=== PATIENT | male | born 1950 | race Caucasian/White ===

== ENCOUNTER 2016-04-21 12:37 | Emergency (ER) | payer OTHER, MEDICARE ==
[~2016-04-21] VITALS: Ht 165.1 cm; Wt 69.4 kg
[~2016-04-21 12:37] MED LIST: CYCLOBENZAPRINE10 M1 PO; DILTIAZEM 24HR120 MG PO; DOXAZOSIN MESYLA2 M1 PO; LISINOPRIL30 M1 PO; METHADONE H5 MG/5 M2 PO; OMEPRAZOLE20 M2 PO; PERCOCET 5-3251 EACH PO
--- NOTE | 2016-04-21 14:18 | ED UPPER/LOWER EXTREMITY COMPL ---
History of Present Illness General Chief Complaint: Hip Injury Stated Complaint: R HIP PAIN Source: patient Exam Limitations: no limitations Vital Signs & Intake/Output Vital Signs & Intake/Output Vital Signs Date Time Temp Pulse Resp B/P Pulse O2 O2 Flow FiO2 Ox Delivery Rate 04/21 1426 98.0 90 20 150/80 100 Room Air 04/21 1255 97.9 96 10 152/86 100 Room Air Allergies Coded Allergies: Penicillins (UNKNOWN 08/26/15) Reconcile Medications Cyclobenzaprine HCl 10 MG TABLET 1 TAB PO TID MUSCLE SPASMS (Reported) Diltiazem HCl (Diltiazem 24HR ER) 120 MG CAP.ER.24H 1 CAP PO DAILY HEART ( Reported) Doxazosin Mesylate 2 MG TABLET 1 TAB PO DAILY HEART (Reported) Hydromorphone HCl (Dilaudid) 2 MG TABLET 1 TAB PO BIDP PRN PAIN Lisinopril 30 MG TABLET 1 TAB PO DAILY HEART (Reported) Methadone HCl 5 MG/5 ML SOLUTION 45 MG PO DAILY ADDICITON (Reported) Omeprazole 20 MG CAPSULE.DR 1 CAP PO DAILY GI (Reported) Oxycodone HCl/Acetaminophen (Percocet 5-325 MG Tablet) 1 EACH TABLET 1 TAB PO Q8 PRN PAIN Triage Note: PT TO ED FOR HIP PAIN AND PAIN MANAGEMENT. HAD IMAGING DONE HERE RECENTLY "ITS ARTHRITIS BUT I NEED PAIN STUFF" Triage Nurses Notes Reviewed? yes Onset: Abrupt Duration: waxing and waning, worse persistent since (today) Timing: multiple episodes today Severity: moderate Pain/Injury Location: Right: Hip. Modifying Factors: Improves With: movement. Associated Symptoms: stiffness HPI: 66 year old male presents with right hip pain which is not being resolved by the pain medication he was given by his doctor. He has a known history of arthritis and states that his doctor has referred him to pain management but he can't wait until Saturday. He is supposed to follow up with [facility] in [place]. He denies any recent trauma or injury. Past History Travel History Traveled to [place] past 21 day No Medical History Any Pertinent Medical History? 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 No Review of Systems Review of Systems Constitutional: Denies: chills, fever. EENTM: Reports: no symptoms. Respiratory: Denies: cough, short of breath, sputum production. Cardiovascular: Denies: chest pain, palpitations. Gastrointestinal/Abdominal: Denies: abdominal pain. Genitourinary: Reports: no symptoms. Musculoskeletal: Reports: joint pain, muscle stiffness. Denies: muscle pain, neck pain. Skin: Reports: no symptoms. Neurological/Psychological: Reports: anxiety. Hematologic/Endocrine: Denies: bruising, bleeding. Immunological: Denies: splenectomy. All Other Systems: Reviewed and Negative Physical Exam Physical Exam General Appearance: alert, awake, mild distress, thin Head: atraumatic Eyes: Bilateral: PERRL, EOMI. Ears, Nose, Throat: normal pharynx, normal ENT inspection, hearing grossly normal Neck: normal inspection, supple Cardiovascular/Respiratory: regular rate/rhythm Peripheral Pulses: 2+ radial (R), 2+ radial (L) Gastrointestinal: SOFT NONTENDER Back: normal inspection Leg Left: normal range of motion, mass Leg Right: normal range of motion, normal inspection Hip Left: normal range of motion, normal inspection Hip Right: normal range of motion, normal inspection, pain (WITH RANGE OF MOTION ) Knee Left: normal range of motion, normal inspection Knee Right: normal range of motion, normal inspection Foot Left: normal inspection, normal range of motion Foot Right: normal inspection, normal range of motion Skin: intact, normal color, warm/dry Lymphatic: no anterior cervical alida Progress Differential Diagnosis: contusion, fracture, gout, septic arthritis, sprain, tendon injury, arthritis Plan of Care: PATIENT DROVE TO THE ER. RX SENT TO PHARMACY. NO ACUTE IMAGING INDICATED. Departure Departure Time of Disposition: 1425 Disposition: HOME OR SELF CARE Condition: Stable Clinical Impression Primary Impression: Hip arthritis Referrals: SANGITA AVILES MD (PCP/Family) Additional Instructions: TAKE THE PAIN MEDICATION DIRECTED AND FOLLOW UP WITH [facility] ON SATURDAY. RETURN NEEDED. Departure Forms: Customer Survey General Discharge Information Prescriptions: Current Visit Scripts Hydromorphone HCl (Dilaudid) 1 TAB PO BIDP PRN PAIN #12 TAB
[2016-04-21 14:26] VITALS: BP 150/80
[2016-04-21] MEDS ORDERED: DILAUDID2 M1 PO (14:27)
== END 2016-04-21 14:31 ==
LOC: ERH 12:37
DX: M16.11 Unilateral primary osteoarthritis, right hip (principal)

== ENCOUNTER 2016-06-16 14:21 | Emergency (ER) | payer OTHER, MEDICARE ==
[~2016-06-16] VITALS: Ht 165.1 cm; Wt 69.4 kg
[~2016-06-16 14:21] MED LIST changes: +DILAUDID2 M1 PO
[2016-06-16] MEDS ORDERED: ZOLPIDEM TARTRA10 M1 PO (17:46)
[2016-06-16] MEDS ORDERED: AMLODIPINE BESY10 M1 PO (17:46)
[2016-06-16 17:55] VITALS: BP 139/76
--- NOTE | 2016-06-16 18:13 | RADIOLOGY REPORT ---
EXAMINATION: CR SHOULDER, RIGHT CR RIGHT KNEE CR RIGHT HIP WITH PELVIS CLINICAL INFORMATION: Pain status post fall. Unable to ambulate. Evaluate for hip or knee fracture. Evaluate for shoulder fracture or dislocation. COMPARISON: Right shoulder films dated 04/10/2016. Right hip films dated 04/10/2016. TECHNIQUE: 3 views of the right shoulder. 4 views of the right knee. Frontal view of the pelvis and coned-down frontal and frog-leg lateral views of the right hip. FINDINGS: RIGHT SHOULDER: No acute fracture or dislocation. Glenohumeral joint intact, but humeral head is slightly superiorly subluxed, raising the suspicion of underlying rotator cuff tear. As noted previously, some mild spurring and cystic changes are seen at the greater tuberosity of the humeral head. There is minimal bursal surface spurring at the acromioclavicular joint. No soft tissue calcifications are seen in the joint. Included right ribs are intact. RIGHT KNEE: The patient is status post total right knee arthroplasty with no hardware failure or [place] bone fracture seen. No significant knee joint effusion is seen. There is some ossification seen within the distal quadriceps tendon and anterior to the proximal patellar tendon. There is some serpiginous sclerotic densities seen in the medullary cavity of the distal right femoral metadiaphysis, raising the suspicion of a small bone infarct. RIGHT HIP AND PELVIS: Evaluation of the pelvis is limited due to suboptimal exposure and overlapping soft tissues. Diffuse osteopenia is seen. No acute fracture or dislocation is seen. There is an old fracture deformity of the left proximal femoral shaft and multiple radiopaque densities are seen in the soft tissues of the proximal left thigh, unchanged from prior exam, consistent with shrapnel injury. There is also some metallic artifact seen in the soft tissues of the right upper buttock. [place] are seen in the left lower paraspinal region. Arteriovascular calcifications is seen. Densely calcified ovoid mass in the left pelvis, medial to the acetabulum is again noted, unchanged. IMPRESSION: 1. Diffuse osteopenia with no acute fracture of the right shoulder, right knee or right hip/pelvis. 2. Findings of old healed fracture deformity of the left proximal femoral shaft and shrapnel injury to the proximal left thigh and upper right buttock. 3. Findings suspicious for rotator cuff tear of the right shoulder. Clinical correlation requested. 4. Minimal bursal surface spurring at the acromioclavicular joint. 5. Status post total right knee arthroplasty. No hardware failure seen. 6. 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
--- NOTE | 2016-06-16 18:29 | ED MVC/FALL/TRAUMA COMPLAINT ---
History of Present Illness General Chief Complaint: Fall Stated Complaint: RT HIP PAIN/FALL LAST PM Source: patient Exam Limitations: no limitations Allergies Coded Allergies: Penicillins (HIVES 06/16/16) acetaminophen (PER PT CANT TAKE - PANCREATITIS 06/16/16) ibuprofen (CANT TAKE PER PT - PANCREATITIS 06/16/16) Reconcile Medications Amlodipine Besylate (Unknown Strength) TABLET (Unknown Dose) UNKNOWN ( Reported) Diltiazem HCl (Diltiazem 24HR ER) 120 MG CAP.ER.24H 1 CAP PO DAILY HEART ( Reported) Doxazosin Mesylate 2 MG TABLET 1 TAB PO DAILY HEART (Reported) Hydromorphone HCl (Dilaudid) 2 MG TABLET 1 TAB PO BIDP PRN PAIN Omeprazole 20 MG CAPSULE.DR 1 CAP PO DAILY GI (Reported) Zolpidem Tartrate 10 MG TABLET 1 TAB PO QPM SLEEP (Reported) Triage Note: TRIAGE: 66 Y/O MALE DROPPED OFF BY FAMILY S/P FALL LAST NIGHT IN KITCHEN. REPORTS SLIPPED ON PANT LEG LAST NIGHT. HISTORY OF CHRONIC HIP PAIN. NOW C/O 10/10 RIGHT HIP AND RIGHT KNEE PAIN. PREVIOUS RIGHT KNEE REPLACEMENT. Triage Nurses Notes Reviewed? yes HPI: This patient is a 66-year-old male who presented to the emergency department today for evaluation of pain in his right knee and right hip status post fall 2 days ago. The patient reported that he tripped on his palate leg in the kitchen and fell onto his right hip. He reported that he has been having 10 out of 10 pain in the hip and knee which is nonradiating, constant, and worse with ambulation. No palliative factors. The patient also reported chronic pain in his right shoulder for which she believes he has a rotator cuff tear. The patient denied any head strike or loss of consciousness. ([place] BISHOP,AMAN) Vital Signs & Intake/Output Vital Signs & Intake/Output Vital Signs Date Time Temp Pulse Resp B/P B/P Pulse O2 O2 Flow FiO2 Mean Ox Delivery Rate 06/16 1755 98.4 93 18 139/76 99 Room Air 06/16 1442 99.5 96 18 128/70 97 Room Air Room Air ED Intake and Output 05/ 0000 05 1200 Intake Total Output Total Balance Patient 153 lb Weight Weight Reported by Patient Measurement Method Past History Travel History Traveled to [place] past 21 day No Medical History Any Pertinent Medical History? 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 No (AMAN LOVELACE PA-C) Review of Systems Review of Systems Constitutional: Reports: no symptoms. Eyes: Reports: no symptoms. Ears, Nose, Throat, Mouth: Reports: no symptoms. Respiratory: Reports: no symptoms. Cardiovascular: Reports: no symptoms. Gastrointestinal/Abdominal: Reports: no symptoms. Musculoskeletal: Reports: see HPI. Skin: Reports: no symptoms. Neurological/Psychological: Reports: no symptoms. All Other Systems: Reviewed and Negative (AMAN LOVELACE PA-C) Physical Exam Physical Exam General Appearance: well developed/nourished, no apparent distress, alert, awake Comments: Well-developed well-nourished person in no acute distress HEENT: Normal EENT exam, head normocephalic, moist mucous membranes PERRLA bilaterally Neck: Supple. No midline tenderness Back: Normal inspection Respiratory: No respiratory distress. Speaking in full sentences Right lower extremity: No effusions overlying erythema or ecchymosis of the joint space. Range of motion of the knee limited due to pain. Motion of the hip limited due to pain. No shortening or inversion/eversion of the extremity. Tenderness to palpation over the patella. Hip nontender to palpation. Right shoulder: Slight limited range of motion of the shoulder due to pain. No effusions overlying erythema or ecchymosis. No bony or muscular deformities. Neuro: Alert oriented x3, cranial nerves II through XII grossly intact. Skin: No appreciable rash on exposed skin, skin is warm and dry. Psych: Mood and affect is normal Core Measures ACS in differential dx? No Severe Sepsis Present: No Septic Shock Present: No (AMAN LOVELACE PA-C) Progress Differential Diagnosis: aoritic dissection, abd injury, C/T/L spine injury, ext injury, ICH, pelvis injury, pnemothorax, spinal cord injury, CONTUSION Plan of Care: This patient is a 66 her old male who presented for evaluation of pain status post fall. No acute abnormality seen on the x-ray. This patient does have chronic hip and shoulder pain. He is going to follow up with his orthopedist. Diagnostic Imaging: Viewed by Me: Radiology Read. Discussed w/RAD: Radiology Read. Radiology Impression: PATIENT: PEDRO ROSSI SR PRESENT AGE: 66 PATIENT ACCOUNT NO: [id number] : 50 LOCATION: [facility] ORDERING PHYSICIAN: AMAN LOVELACE PA-C SERVICE DATE: 06/16/16 EXAM TYPE: RAD - XRY-HIP 2-3 VIEWS, RIGHT; XRY-KNEE, RIGHT; XRY-SHOULDER COMPLETE- RIGHT EXAMINATION: CR SHOULDER, RIGHT CR RIGHT KNEE CR RIGHT HIP WITH PELVIS CLINICAL INFORMATION: Pain status post fall. Unable to ambulate. Evaluate for hip or knee fracture. Evaluate for shoulder fracture or dislocation. COMPARISON: Right shoulder films dated 04/10/2016. Right hip films dated 04/10/2016. TECHNIQUE: 3 views of the right shoulder. 4 views of the right knee. Frontal view of the pelvis and coned-down frontal and frog-leg lateral views of the right hip. FINDINGS: RIGHT SHOULDER: No acute fracture or dislocation. Glenohumeral joint intact, but humeral head is slightly superiorly subluxed, raising the suspicion of underlying rotator cuff tear. As noted previously, some mild spurring and cystic changes are seen at the greater tuberosity of the humeral head. There is minimal bursal surface spurring at the acromioclavicular joint. No soft tissue calcifications are seen in the joint. Included right ribs are intact. RIGHT KNEE: The patient is status post total right knee arthroplasty with no hardware failure or [place] bone fracture seen. No significant knee joint effusion is seen. There is some ossification seen within the distal quadriceps tendon and anterior to the proximal patellar tendon. There is some serpiginous sclerotic densities seen in the medullary cavity of the distal right femoral metadiaphysis, raising the suspicion of a small bone infarct. RIGHT HIP AND PELVIS: Evaluation of the pelvis is limited due to suboptimal exposure and overlapping soft tissues. Diffuse osteopenia is seen. No acute fracture or dislocation is seen. There is an old fracture deformity of the left proximal femoral shaft and multiple radiopaque densities are seen in the soft tissues of the proximal left thigh, unchanged from prior exam, consistent with shrapnel injury. There is also some metallic artifact seen in the soft tissues of the right upper buttock. [place] are seen in the left lower paraspinal region. Arteriovascular calcifications is seen. Densely calcified ovoid mass in the left pelvis, medial to the acetabulum is again noted, unchanged. IMPRESSION: 1. Diffuse osteopenia with no acute fracture of the right shoulder, right knee or right hip/pelvis. 2. Findings of old healed fracture deformity of the left proximal femoral shaft and shrapnel injury to the proximal left thigh and upper right buttock. 3. Findings suspicious for rotator cuff tear of the right shoulder. Clinical correlation requested. 4. Minimal bursal surface spurring at the acromioclavicular joint. 5. Status post total right knee arthroplasty. No hardware failure seen. 6. 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 DICTATED BY: LEONIDAS FORD MD. DATE/TIME DICTATED:06/16/161734 TRANSPORTATION SUPERVISOR:DUARTE DATE/TIME TRANSCRIBED:06/16/161734 CONFIDENTIAL, DO NOT COPY WITHOUT APPROPRIATE AUTHORIZATION. <Electronically signed in Other Vendor System> SIGNED BY: LEONIDAS FORD MD 06/16/16 6763 (AMAN LOVELACE PA-C) Departure Departure Disposition: HOME OR SELF CARE Condition: Stable Clinical Impression Primary Impression: Contusion Qualifiers: Encounter type: initial encounter Contusion area: shoulder Laterality: right Qualified Code: S40.011A - Contusion of right shoulder, initial encounter Referrals: JOSÉ LUIS DUVALL,DUDLEY AVILES MD,SANGITA (PCP/Family) Additional Instructions: Please ice and elevate the affected area. Take previously prescribed medication for pain as directed. Please follow-up with your orthopedist and primary care physician. Return for any worsening symptoms or concerns. 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 I have also reviewed all the pertinent lab results and diagnostic results. I agree with the findings and the plan of care as documented in the PA's/PAPER CUTTING MACHINE OPERATOR's documentation. [] I have reviewed the ED Record and agree with the PA's/PAPER CUTTING MACHINE OPERATOR's documentation. [] Additions or exceptions (if any) to the PAs/PAPER CUTTING MACHINE OPERATOR's note and plan are summarized below: [] (ROMAINE DUVALL,PRISCILLA)
[2016-06-16] MEDS ORDERED: DILAUDID2 M1 PO (19:18)
== END 2016-06-16 19:33 ==
LOC: ERH 14:21
DX: T14.8 Other injury of unspecified body region (principal); M25.561 Pain in right knee; M25.511 Pain in right shoulder; W01.0XXA Fall on same level from slipping, tripping and stumbling without subsequent striking against object, initial encounter; Y93.9 Activity, unspecified; Y92.000 Kitchen of unspecified non-institutional (private) residence as the place of occurrence of the external cause
CPT/HCPCS: 73030-RT; 73502-RT; 73560-RT

== ENCOUNTER 2016-06-25 09:23 | Emergency (ER) | payer OTHER, MEDICARE ==
[~2016-06-25] VITALS: Ht 165.1 cm; Wt 69.4 kg
[~2016-06-25 09:23] MED LIST changes: +AMLODIPINE BESY10 M1 PO; +ZOLPIDEM TARTRA10 M1 PO
[2016-06-25 09:30] VITALS: BP 160/86
--- NOTE | 2016-06-25 09:40 | ED GENERAL ADULT ---
History of Present Illness General Chief Complaint: General Adult Stated Complaint: "ARTHRITIS IS KILLING ME" Source: patient Exam Limitations: no limitations Vital Signs & Intake/Output Vital Signs & Intake/Output Vital Signs Date Time Temp Pulse Resp B/P B/P Pulse O2 O2 Flow FiO2 Mean Ox Delivery Rate 06/25 0930 98.2 108 14 160/86 96 Room Air Allergies Coded Allergies: Penicillins (HIVES 06/16/16) acetaminophen (PER PT CANT TAKE - PANCREATITIS 06/16/16) ibuprofen (CANT TAKE PER PT - PANCREATITIS 06/16/16) Reconcile Medications Amlodipine Besylate 10 MG TABLET 1 TAB PO DAILY HEART (Reported) Diltiazem HCl (Diltiazem 24HR ER) 120 MG CAP.ER.24H 1 CAP PO DAILY HEART ( Reported) Doxazosin Mesylate 2 MG TABLET 1 TAB PO DAILY HEART (Reported) Hydromorphone HCl (Dilaudid) 2 MG TABLET 1 TAB PO Q12 PRN PAIN Hydromorphone HCl (Dilaudid) 2 MG TABLET 1 TAB PO BIDP PRN PAIN Omeprazole 20 MG CAPSULE.DR 1 CAP PO DAILY GI (Reported) Zolpidem Tartrate 10 MG TABLET 1 TAB PO QPM SLEEP (Reported) Triage Note: 66 Y/O MALE C/O CHRONIC HIP PAIN AND "MY ARTHRITIS IS KILLING ME". STATES HE HAS BEEN TAKING PO DILAUDID WITH SOME RELIEF BUT RAN OUT AND IS WAITING TO GET INTO PAIN MANAGEMENT. Triage Nurses Notes Reviewed? yes Onset: Abrupt Duration: week(s): Timing: recent history HPI: 06/25/16 10 AM 66-year-old male presents to the emergency department for right hip pain. The patient states that he fell approximately one month ago when he tripped secondary to his underlying gait disturbance. He's had ongoing right hip pain. He said x-rays were done which were negative. Now he complains of ongoing pain and is requesting a prescription refill. He says he cannot tolerate ibuprofen or Percocet due to his pancreatitis. The onset of the symptoms were abrupt, the duration has been 7 days, the severity is significant; as his symptoms required him to come to the emergency department for care. On physical examination he does have pain and tenderness to the right groin and decreased range of motion. Past History Travel History Traveled to [place] past 21 day No Medical History Any Pertinent Medical History? 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 No Review of Systems Review of Systems Constitutional: Reports: no symptoms. EENTM: Reports: no symptoms. Respiratory: Reports: no symptoms. Cardiovascular: Reports: no symptoms. GI: Reports: no symptoms. Genitourinary: Reports: no symptoms. Musculoskeletal: Reports: see HPI. Skin: Denies: rash. Neurological/Psychological: Reports: no symptoms. Hematologic/Endocrine: Reports: no symptoms. Immunologic/Allergic: Reports: no symptoms. Physical Exam Physical Exam General Appearance: alert, awake, anxious, mild distress Head: atraumatic, normal appearance Eyes: Bilateral: normal appearance, PERRL, EOMI. Ears, Nose, Throat: normal pharynx, normal ENT inspection Neck: normal inspection, supple, full range of motion Respiratory: normal breath sounds, chest non-tender, no respiratory distress Cardiovascular: regular rate/rhythm Peripheral Pulses: 4+ radial (R), 4+ radial (L) Back: decreased range of motion Extremities: tenderness Neurologic/Psych: no motor/sensory deficits, awake, alert, oriented x 3 Skin: intact, normal color, warm/dry Core Measures ACS in differential dx? No CVA/TIA Diagnosis: No Severe Sepsis Present: No Septic Shock Present: No Progress Differential Diagnoses I considered the following diagnoses in my evaluation of the patient: [Hip fracture, arthritis, bursitis] Plan of Care: FOLLOW UP WITH HIS DOCTOR THIS WEEK Initial ED EKG: none Departure Departure Disposition: STILL A PATIENT Condition: Stable Clinical Impression Primary Impression: Arthritis Referrals: SANGITA AVILES MD (PCP/Family) Departure Forms: Customer Survey General Discharge Information Prescriptions: Current Visit Scripts Hydromorphone HCl (Dilaudid) 1 TAB PO Q12 PRN PAIN #10 TAB Comments RECENT HIP x-ray IMPRESSION: Degenerative change both hips with evidence of old trauma metallic shrapnel and deformity of the left femur. DICTATED BY: KVNG PATTERSON MD DATE/TIME DICTATED:04/10/161540 FLOORING GRADER:DUARTE DATE/TIME TRANSCRIBED:04/10/161540 CONFIDENTIAL, DO NOT COPY WITHOUT APPROPRIATE AUTHORIZATION. <Electronically signed in Other Vendor System> SIGNED BY: KVNG PATTERSON MD 04/10/16 3139 Critical Care Note Critical Care Note Critical Care Time: non-applicable
[2016-06-25] MEDS ORDERED: DILAUDID2 M1 PO (10:10)
== END 2016-06-25 10:36 ==
LOC: ERH 09:23
DX: M16.11 Unilateral primary osteoarthritis, right hip (principal)

== ENCOUNTER 2016-07-10 11:14 | Inpatient (IN) | payer OTHER, MEDICARE ==
[~2016-07-10] VITALS: Ht 165.1 cm; Wt 69.4 kg
--- NOTE | 2016-07-10 12:15 | ED UPPER/LOWER EXTREMITY COMPL ---
History of Present Illness General Chief Complaint: Hip Injury Stated Complaint: RT HIP PAIN Source: patient Exam Limitations: no limitations Vital Signs & Intake/Output Vital Signs & Intake/Output Vital Signs Date Time Temp Pulse Resp B/P B/P Pulse O2 O2 Flow FiO2 Mean Ox Delivery Rate 07/11 2047 98.0 89 20 130/70 95 Room Air 07/10 1702 153/72 07/10 1538 97.2 65 20 159/82 97 Room Air 07/10 1157 99 Room Air 07/10 1134 97.9 96 20 137/84 98 Room Air Allergies Coded Allergies: Penicillins (HIVES 06/16/16) acetaminophen (PER PT CANT TAKE - PANCREATITIS 06/16/16) ibuprofen (CANT TAKE PER PT - PANCREATITIS 06/16/16) Reconcile Medications Amlodipine Besylate 10 MG TABLET 1 TAB PO DAILY HEART (Reported) Diltiazem HCl (Diltiazem 24HR ER) 120 MG CAP.ER.24H 1 CAP PO DAILY HEART ( Reported) Doxazosin Mesylate 2 MG TABLET 1 TAB PO DAILY HEART (Reported) Omeprazole 20 MG CAPSULE.DR 1 CAP PO DAILY GI (Reported) Oxycodone HCl 10 MG TABLET 1 TAB PO Q8H PRN PAIN (Reported) Zolpidem Tartrate 10 MG TABLET 1 TAB PO QPM SLEEP (Reported) Triage Note: C/O PAIN IN R HIP X 3 DAYS. STATES HE HAS ARTHRITIS AND IS UNABLE TO BEAR WEIGHT. DENIES FALL OR INJURY. Triage Nurses Notes Reviewed? yes Onset: Abrupt Duration: day(s):, constant, getting worse Timing: recent history Severity: moderate, severe Pain/Injury Location: Right: Hip. No Modifying Factors: none HPI: 66-year-old male comes into emergency room with complains of right hip pain. Patient reports that he had fallen about a month ago and was seen here and had x -rays done and was told everything was normal. This past he's had increasing pain to the right hip. He denies any recent falls or trauma. Sharp. Difficulty putting any ambulation on his hip. Denies any other associated symptoms. (GAVIN VERA) Past History Travel History Traveled to [place] past 21 day No Medical History Any Pertinent Medical History? 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 No (GAVIN VERA) Review of Systems Review of Systems Constitutional: Reports: no symptoms. EENTM: Reports: no symptoms. Respiratory: Reports: no symptoms. Cardiovascular: Reports: no symptoms. Gastrointestinal/Abdominal: Reports: no symptoms. Genitourinary: Reports: no symptoms. Musculoskeletal: Reports: see HPI. Skin: Reports: no symptoms. Neurological/Psychological: Reports: no symptoms. Hematologic/Endocrine: Reports: no symptoms. Immunological: Reports: no symptoms. All Other Systems: Reviewed and Negative (GAVIN VERA) Physical Exam Physical Exam General Appearance: well developed/nourished, mild distress Head: atraumatic Eyes: Bilateral: normal appearance. Ears, Nose, Throat: normal ENT inspection, hearing grossly normal Neck: normal inspection Cardiovascular/Respiratory: no respiratory distress Back: normal inspection Hip Right: limited range of motion, pain with radaition Knee Right: normal inspection Neurologic/Tendon: normal sensation, normal motor functions, normal tendon functions, no evidence tendon injury, no pulse deficit Skin: intact, normal color, warm/dry Lymphatic: no anterior cervical alida (GAVIN VERA) Progress Differential Diagnosis: compartment syndrome, contusion, dislocation, DVT, fracture, gout, septic arthritis, sprain, tendon injury Plan of Care: Orders Procedure Date/time Status Regular Diet 07/11 B Active CBC WITHOUT DIFFERENTIAL 07/11 06 Active BASIC ELECTROLYTES PLUS BUN&CR 07/11 06 Active Regular Diet 07/10 D Complete Pathway - chart 07/10 183 Active Admit to inpatient 07/10 183 Active Patient Data 07/10 183 Active Code Status 07/10 183 Active PARTIAL THROMBOPLASTIN TIME 07/10 1247 Complete PROTHROMBIN TIME 07/10 1247 Complete COMPREHENSIVE METABOLIC PANEL 05/30 1247 Complete CBC WITHOUT DIFFERENTIAL 07/10 1246 Complete EKG 07/10 1246 Active TYPE & SCREEN (NOT X-MATCH) 07/10 1246 Complete PT Evaluate & Treat 07/10 UNK Active VTE Mechanical Prophylaxis 07/10 UNK Active Vital Signs 07/10 UNK Active Nursing Misc 07/10 UNK Active Intake & Output 07/10 UNK Active Activity/Ambulation 07/10 UNK Active Current Medications Sig/Esperanza Start time Last Medication Dose Stop Time Status Admin Cefazolin Sodium 2 GM IQ8 07/11 0000 AC (Kefzol) 07/11 0829 N/A 1 UNIT (No Carrier) Dextrose/Sodium 1,000 ML Q13H 07/10 1944 AC 07/10 Chloride 2054 (D5W-1/2 Normal Saline 1000ML) Hydromorphone HCl 1 MG Q2 HRS NEEDED PRN 07/10 1944 AC 07/10 (Dilaudid) 2052 Hydromorphone HCl 0.6 MG Q2 HRS NEEDED PRN 07/10 1944 AC (Dilaudid) Hydromorphone HCl 4 MG Q4 HRS NEEDED PRN 07/10 1944 AC (Dilaudid) Laboratory Tests 07/10/16 1545: Anion Gap 11, Estimated GFR 47 L, BUN/Creatinine Ratio 12.0, Glucose 101 H, Calcium 9.4, Total Bilirubin 0.7, AST 22, ALT 30, Alkaline Phosphatase 159 H, Total Protein 7.5, Albumin 4.3, Globulin 3.2, Albumin/Globulin Ratio 1.3, PT 14.2 H, INR 1.36 H, APTT 30, CBC w Diff NO MAN DIFF REQ, RBC 4.05 L, MCV 89.6 , MCH 30.4, RDW 13.2, MPV 6.6 L, Gran % 80.9 H, Lymphocytes % 15.0 L, Monocytes % 3.7, Eosinophils % 0.3, Basophils % 0.1, Absolute Granulocytes 6.6 H, Absolute Lymphocytes 1.2, Absolute Monocytes 0.3, Absolute Eosinophils 0, Absolute Basophils 0, PUBS MCHC 33.9 Diagnostic Imaging: Viewed by Me: Radiology Read. Discussed w/RAD: Radiology Read. Radiology Impression: SERVICE DATE: 07/10/16-1246 EXAM TYPE: RAD - XRY- PORTABLE CHEST XRAY EXAMINATION: CHEST 1 VIEW CLINICAL INFORMATION: Hip fracture. Preop. COMPARISON: 01/07/2013. TECHNIQUE: An AP view of the chest is provided. FINDINGS: The cardiac silhouette is not enlarged. The mediastinal and hilar contours are unremarkable. There are neither pleural effusions nor pneumothoraces. There is minimal atelectasis at the left lung base. There are no consolidations. A left humeral prosthesis is intact. IMPRESSION: No consolidations. Minimal atelectasis at the left lung base. DICTATED BY: ZACK ATKINS MD DATE/TIME DICTATED:07/10/161326 TOWEL HEMMER:DUARTE , SERVICE DATE: 07/10/16 EXAM TYPE: RAD - XRY-HIP 2-3 VIEWS, RIGHT EXAMINATION: XR HIP, RIGHT CLINICAL INFORMATION: Right hip pain. COMPARISON: 07/2016. TECHNIQUE: AP and lateral views of the right hip. FINDINGS: There is new demonstration of a femoral neck fracture without significant displacement. There is mild medial joint space narrowing. There is soft tissue swelling about the right hip. IMPRESSION: Right femoral neck fracture. DICTATED BY: ZACK ATKINS MD DATE/TIME DICTATED:07/10/161246 Initial ED EKG: normal intervals, normal p-waves, normal QRS complex, normal sinus rhythm, rate (63) (GAVIN VERA) Departure Departure Disposition: STILL A PATIENT Condition: Stable Clinical Impression Primary Impression: Fracture of femoral neck, right Referrals: SANGITA AVILES MD (PCP/Family) Departure Forms: Customer Survey General Discharge Information OR/GI Note Spoke With: NATALYA DUVALL,KAELA Davis ED Treatment Decision: PEDRO ROSSI SR requires urgent operative management or an emergent procedure that cannot be performed in the Emergency Room setting. Transport To: [facility] (GAVIN VERA) PA/TUBULAR PRODUCTS FABRICATOR Co-Sign Statement Statement: ED Attending supervision documentation- [X] I saw and evaluated the patient. I have also reviewed all the pertinent lab results and diagnostic results. I agree with the findings and the plan of care as documented in the PA's/TUBULAR PRODUCTS FABRICATOR's documentation. [X] I have reviewed the ED Record and agree with the PA's/TUBULAR PRODUCTS FABRICATOR's documentation. [] Additions or exceptions (if any) to the PAs/TUBULAR PRODUCTS FABRICATOR's note and plan are summarized below: [] (BREONNA DUVALL,ARTURO) Critical Care Note Critical Care Note Critical Care Time: 30-74 min (40) (ANNALISE CASTANEDA,GAVIN)
--- NOTE | 2016-07-10 13:01 | RADIOLOGY REPORT ---
EXAMINATION: XR HIP, RIGHT CLINICAL INFORMATION: Right hip pain. COMPARISON: 06/16/2016. TECHNIQUE: AP and lateral views of the right hip. FINDINGS: There is new demonstration of a femoral neck fracture without significant displacement. There is mild medial joint space narrowing. There is soft tissue swelling about the right hip. IMPRESSION: Right femoral neck fracture.
--- NOTE | 2016-07-10 13:31 | RADIOLOGY REPORT ---
EXAMINATION: CHEST 1 VIEW CLINICAL INFORMATION: Hip fracture. Preop. COMPARISON: 01/07/2013. TECHNIQUE: An AP view of the chest is provided. FINDINGS: The cardiac silhouette is not enlarged. The mediastinal and hilar contours are unremarkable. There are neither pleural effusions nor pneumothoraces. There is minimal atelectasis at the left lung base. There are no consolidations. A left humeral prosthesis is intact. IMPRESSION: No consolidations. Minimal atelectasis at the left lung base.
--- NOTE | 2016-07-10 14:14 | Cons- Medical ---
[facility] 07/10/16 1414: General Information and HPI Consulting Request Date of Consult: 07/11/16 Requested By: Reason for Consult: Medical clearance for OR Source of Information: patient, old records Exam Limitations: no limitations History of Present Illness: Mr.Voytek meek a 66 yo man with PMHx. of Hypertension, pancreatitis, hepatitis C, history of arthritis, chronic pain syndrome, presented to emergency department with a chief complaint of worsening right hip pain. Patient reports that over the last month he had progressively worsening to right hip pain, over the weekend his pain became very severe, stabbing in nature, 10 over 10 in severity, he was waiting for his son to arrive from a short trip to bring him here to emergency department, his son arrived yesterday and today in the morning he asked him to bring him to emergency department for more evaluation of the right hip pain. Patient was at our emergency department 2 weeks ago with the same pain, at that time pain was attributes to arthritis, x- ray of the right hip was done which was negative, he was given Dilaudid and discharge, he was asked to follow-up with his pain management clinic. Patient reports history of fall about one month ago when he tripped with his pants while dealing with his dog, he fell on his right hip and since that time he has constant pain, he denies any swelling or bruise in the area, he thought that his arthritis is acting up with the weather. He has been taking his medication which include Diluded without relief. He denies any other area of injury or pain, he denies chest pain, shortness of breath, stomach pain, weakness, numbness, loss of consciousness, nausea, vomiting, and no change in urinary or bowel habits. He was unable to ambulate in his right lower extremity, his son was supporting while on the way to emergency department. He is following up with pain management clinic, Dr.Daniela alford Allergies/Medications Allergies: Coded Allergies: Penicillins (HIVES 06/16/16) acetaminophen (PER PT CANT TAKE - PANCREATITIS 06/16/16) ibuprofen (CANT TAKE PER PT - PANCREATITIS 06/16/16) Home Med List: Amlodipine Besylate 10 MG TABLET 1 TAB PO DAILY HEART (Reported) Diltiazem HCl (Diltiazem 24HR ER) 120 MG CAP.ER.24H 1 CAP PO DAILY HEART ( Reported) Doxazosin Mesylate 2 MG TABLET 1 TAB PO DAILY HEART (Reported) Omeprazole 20 MG CAPSULE.DR 1 CAP PO DAILY GI (Reported) Oxycodone HCl 10 MG TABLET 1 TAB PO Q8H PRN PAIN (Reported) Zolpidem Tartrate 10 MG TABLET 1 TAB PO QPM SLEEP (Reported) Current Medications: Current Medications Sig/Esperanza Start time Last Medication Dose Route Stop Time Status Admin Cyclobenzaprine HCl 5 MG BID 07/10 1559 DCr PO Heparin Sodium 0 .STK-MED ONE 07/10 1430 DC (Porcine) IV Hydromorphone HCl 2 MG ONCE ONE 07/10 1400 DC IM 07/10 1401 Hydromorphone HCl 0 .STK-MED ONE 07/10 1351 DC .ROUTE Hydromorphone HCl 1 MG ONCE ONE 07/10 1345 DC 07/10 IM 07/10 1346 1404 Lidocaine 1 PAT DAILY 07/10 1559 DCr EXT Lidocaine 0 .STK-MED ONE 07/10 1430 DC .ROUTE Review of Systems Review of Systems Constitutional: Reports: no symptoms. EENTM: Reports: no symptoms. Cardiovascular: Reports: no symptoms. Respiratory: Reports: no symptoms. GI: Reports: no symptoms. Genitourinary: Reports: no symptoms. Musculoskeletal: Reports: see HPI, back pain, joint pain. Skin: Reports: no symptoms. Neurological/Psychological: Reports: no symptoms. Hematologic/Endocrine: Reports: no symptoms. Immunologic/Allergic: Reports: no symptoms. 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 Surgical History Surgical History: non-contributory Family History Relations & Conditions If Any: FATHER MOTHER Relation not specified for: CHF (congestive heart failure) FHx: stroke Psychosocial History Services at Home: None ETOH Use: denies use Exam & Diagnostic Data Last 24 Hrs of Vital Signs/I&O Vital Signs Date Time Temp Pulse Resp B/P B/P Pulse O2 O2 Flow FiO2 Mean Ox Delivery Rate 07/10 1538 97.2 65 20 159/82 97 Room Air 07/10 1157 99 Room Air 07/10 1134 97.9 96 20 137/84 98 Room Air Intake & Output 07/10 1600 07/10 0800 07/10 0000 Intake Total Output Total Balance Patient 153 lb Weight Weight Reported by Patient Measurement Method Physical Exam General Appearance: no apparent distress, alert, awake Head: atraumatic, normal appearance Eyes: Bilateral: normal appearance, PERRL, EOMI. Neck: normal inspection, supple Respiratory: normal breath sounds, no respiratory distress Cardiovascular: regular rate/rhythm, normal peripheral pulses Gastrointestinal: normal bowel sounds, soft, non-tender, Mid-epigastric incisional scar, with hernia Extremities: normal inspection, normal capillary refill, decrease range of motion on the RT. lower extrimity Neurologic/Psych: awake, alert, oriented x 3, abnormal gait, limping Last 24 Hrs of Labs/Matty: Laboratory Tests 07/10/16 1545: Sodium Pending, Potassium Pending, Chloride Pending, Carbon Dioxide Pending, Anion Gap Pending, BUN Pending, Creatinine Pending, BUN/Creatinine Ratio Pending , Glucose Pending, Calcium Pending, Total Bilirubin Pending, AST Pending, ALT Pending, Alkaline Phosphatase Pending, Total Protein Pending, Albumin Pending, Globulin Pending, Albumin/Globulin Ratio Pending, PT Pending, INR Pending, APTT Pending, CBC w Diff NO MAN DIFF REQ, RBC 4.05 L, MCV 89.6, MCH 30.4, RDW 13.2, MPV 6.6 L, Gran % 80.9 H, Lymphocytes % 15.0 L, Monocytes % 3.7, Eosinophils % 0.3, Basophils % 0.1, Absolute Granulocytes 6.6 H, Absolute Lymphocytes 1.2, Absolute Monocytes 0.3, Absolute Eosinophils 0, Absolute Basophils 0, PUBS MCHC 33.9 Diagnostic Data CXR Results IMPRESSION: No consolidations. Minimal atelectasis at the left lung base. Other Results Hip X-ray: IMPRESSION: Right femoral neck fracture. Assessment/Plan Assessment/Plan Mr.Voytek meek a 66 yo man with PMHx. of Hypertension, pancreatitis, hepatitis C, history of arthritis, chronic pain syndrome, presented to emergency department with a chief complaint of worsening right hip pain admitted for ORIF of right hip. Vitals, examination, labs and imaging as above EKG: SR, Normal intervals, normal p-waves, normal QRS complex, normal sinus rhythm, rate (63) Assessment: #Rt. hip fracture 2/2 mechanical fall 1 month ago #Hx. of HTN #CKD stage 3a, creatinine 1.5 #Hx. of Hepatitis C #Hx. of Pancreatitis Plan: -Patient is medically optimized for surgical intervention today -Continue his home blood pressure medications (Amlodipine and cardizem) -Continue his other home meds -His RCRI score is 0.4 (class I risk) -Pain management -NPO in anticipation of procedure -Monitor respiratory status after procedure giving smoking history -DVT ppx. per surgical team Full code Problem List: 1. Fracture of femoral neck, right 2. Hypertension Consult Acknowledgment - Thank you for your consult request. KATHRYN ODNALD MD 07/10/162130: Assessment/Plan Consult Acknowledgment - Thank you for your consult request. Attending MD Review Statement Attending Statement Attending MD Statement: examined this patient, discuss w/resident/PA/SERVICES MGR, agreed w/resident/PA/SERVICES MGR, reviewed EMR data (avail) Attending Assessment/Plan: Agree with resident assessment and plan. 66M PMH HTN, multiple joint surgeries presenting with mechanical fall 1 week ago and right hip pain with worsening of pain today, found to have right sided hip fracture. Patient is a lifelong smoker but has had no history of COPD diagnosis or exacerbations. He is very active and able to climb flights of stairs without shortness of breath or chest pain. He has no cardiac history. His physical exam is unremarkable. Patient is MEDICALLY OPTIMIZED (and not cleared as documented by resident) for surgery. He is at low cardiac risk. Given his smoking history he is at increased pulmonary risk, though no history of COPD symptoms mitigates this. Will follow while inpatient. See resident recommendations for full details.
[2016-07-10 16:00] LABS: ABSOLUTE BASOPHIL COUNT 0 /CUMM (0.0-0.2); ABSOLUTE EOSINOPHIL COUNT 0 /CUMM (0.0-0.7); ABSOLUTE GRANULOCYTE CT 6.6 /CUMM (1.4-6.5); ABSOLUTE LYMPH COUNT 1.2 /CUMM (1.2-3.4); ABSOLUTE MONOCYTE COUNT 0.3 /CUMM (0.10-0.60); BASOPHIL % 0.1 % (0.0-2.0); EOSINOPHIL % 0.3 % (0-5); GRANULOCYTE % 80.9 % (42.2-75.2); HEMATOCRIT 36.3 % (42-52); MEAN CORPUSCULAR HGB 30.4 PG (27.0-31.0); MEAN CORPUSCULAR HGB CONC 33.9 G/DL (33.0-37.0); MEAN CORPUSCULAR VOLUME 89.6 FL (80.0-94.0); MEAN PLATELET VOLUME 6.6 FL (7.4-10.4); PLATELET COUNT 228 /CUMM (130-400); RBC DISTRIBUTION WIDTH 13.2 % (11.5-14.5); RED BLOOD CELL CT 4.05 /CUMM (4.70-6.10); WHITE BLOOD CELL COUNT 8.2 /CUMM (4.8-10.8)
[2016-07-10] MEDS ORDERED: OXYCODONE HCL10 M2 PO (16:02)
[2016-07-10 16:15] LABS: PT 14.2 SEC (9.4-12.5); PTT 30 SEC (25-37)
--- NOTE | 2016-07-10 16:28 | ULTRASOUND REPORT ---
EXAMINATION: PICC PLACEMENT-RIGHT CLINICAL HISTORY: This patient is a 66 years old Male with a history of poor venous access and new hip fracture, who presents to interventional radiology for placement of a triple lumen PICC for central venous access. PROCEDURES: 1. Real-time ultrasound-guided access into the right brachial vein after documentation of selected vessel patency, and permanent imaging storing in the patient records. 2. Placement of a PICC. PHYSICIANS: Dr. Cheryl Whyte (attending). MEDICATIONS: 4 mL of 1% lidocaine SQ. COMPLICATIONS: None. ESTIMATED BLOOD LOSS: <5 mL. SPECIMENS: None. FLUOROSCOPY TIME: 46 seconds. PROCEDURE NOTE: Informed consent was obtained from the patient prior to the procedure. During this process, the procedure and potential alternatives were explained along with the intended outcome and benefits. The risks of the procedure, including the possibility of an unsuccessful procedure, as well as the risk of not doing the procedure, were discussed. The patient was given the opportunity to ask questions regarding the procedure and appeared competent to make decisions. A signed consent form documenting this discussion was placed in the medical record. SITE MARKING: As part of the preprocedure verification policy, a site marking procedure was initiated. Due to the nature the procedure, the insertion site could not be predetermined thus invoking the policy of exemption to site laterality and marking. Insertion site marking was performed in the procedure room in conjunction with imaging confirmation. A time-out procedure was performed. The patient was placed supine on the fluoroscopy table. Prior to prepping the patient, a limited sonogram of the right arm was performed to choose appropriate access, and this arm was prepped and draped in the usual sterile fashion. All elements of maximal sterile barrier technique followed including use of cap, mask, sterile gown, sterile gloves, a sterile full body drape and hand hygiene. Also followed skin preparation with 2% chlorhexidine for cutaneous antisepsis, and sterile ultrasound preparation with sterile gel and probe cover when applicable. Venous access was achieved into the right brachial vein using ultrasound and fluoroscopic guidance. The 0.018 measuring wire from the PICC was advanced into the cavoatrial junction. The needle was removed and replaced with the peel away sheath. The intravascular length was measured and the catheter was trimmed to the correct length. The inner dilator was removed and the PICC was advanced over the wire into the cavoatrial junction. The peel away sheath and wire were removed. The catheter was tested successfully and secured to the skin with its tip in the cavoatrial junction. A spot image was taken. FINDINGS: 1. Patent right brachial vein. 2. Successful placement of a triple lumen PICC that measures 41 cm in length. IMPRESSION: Successful placement of a PICC. PLAN: 1. The patient was stable after the procedure and was transferred to the interventional recovery area. The patient will be transferred to the floor. 2. The catheter may be used immediately.
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
--- NOTE | 2016-07-10 19:41 | RADIOLOGY REPORT ---
EXAMINATION: XR HIP, RIGHT CLINICAL INFORMATION: Right femoral neck fracture. COMPARISON: 07/10/2016. TECHNIQUE: Several digital images were obtained over a right hip.. FINDINGS/IMPRESSION: There are 3 cannulated screws traversing the right femoral neck for stabilization of neck fracture. No dislocation seen. No additional bony abnormality. The soft tissues are normal.
--- NOTE | 2016-07-10 20:43 | Admission Core Measures ---
Admission Lab Results I reviewed the following labs: Laboratory Tests 07/10 1545 Chemistry Sodium (137 - 145 mmol/L) 139 Potassium (3.5 - 5.1 mmol/L) 4.5 Chloride (98 - 107 mmol/L) 103 Carbon Dioxide (22 - 30 mmol/L) 24 Anion Gap (5 - 16) 11 BUN (9 - 20 mg/dL) 18 Creatinine (0.7 - 1.2 mg/dL) 1.5 H Estimated GFR (>60 ml/min) 47 L BUN/Creatinine Ratio (7 - 25 %) 12.0 Glucose (65 - 99 mg/dL) 101 H Calcium (8.4 - 10.2 mg/dL) 9.4 Total Bilirubin (0.2 - 1.3 mg/dL) 0.7 AST (17 - 59 U/L) 22 ALT (21 - 72 U/L) 30 Alkaline Phosphatase (< 127 U/L) 159 H Total Protein (6.3 - 8.2 g/dL) 7.5 Albumin (3.5 - 5.0 g/dL) 4.3 Globulin (1.9 - 4.2 gm/dL) 3.2 Albumin/Globulin Ratio (1.1 - 2.2 %) 1.3 Coagulation PT (9.4 - 12.5 SEC) 14.2 H INR (0.90 - 1.17) 1.36 H APTT (25 - 37 SEC) 30 Hematology CBC w Diff NO MAN DIFF REQ WBC (4.8 - 10.8 /CUMM) 8.2 RBC (4.70 - 6.10 /CUMM) 4.05 L Hgb (14.0 - 18.0 G/DL) 12.3 L Hct (42 - 52 %) 36.3 L MCV (80.0 - 94.0 FL) 89.6 MCH (27.0 - 31.0 PG) 30.4 RDW (11.5 - 14.5 %) 13.2 Plt Count (130 - 400 /CUMM) 228 MPV (7.4 - 10.4 FL) 6.6 L Gran % (42.2 - 75.2 %) 80.9 H Lymphocytes % (20.5 - 51.1 %) 15.0 L Monocytes % (1.7 - 9.3 %) 3.7 Eosinophils % (0 - 5 %) 0.3 Basophils % (0.0 - 2.0 %) 0.1 Absolute Granulocytes (1.4 - 6.5 /CUMM) 6.6 H Absolute Lymphocytes (1.2 - 3.4 /CUMM) 1.2 Absolute Monocytes (0.10 - 0.60 /CUMM) 0.3 Absolute Eosinophils (0.0 - 0.7 /CUMM) 0 Absolute Basophils (0.0 - 0.2 /CUMM) 0 PUBS MCHC (33.0 - 37.0 G/DL) 33.9 Admission Meds I reviewed the following Meds: Current Medications Sig/Esperanza Start time Last Medication Dose Stop Time Status Admin Cefazolin Sodium 2 GM IQ8 07/11 0000 AC (Kefzol) 07/11 0829 N/A 1 UNIT (No Carrier) Dextrose/Sodium 1,000 ML Q13H 07/10 1944 AC Chloride (D5W-1/2 Normal Saline 1000ML) Hydromorphone HCl 1 MG Q2 HRS NEEDED PRN 07/10 1944 AC (Dilaudid) Hydromorphone HCl 0.6 MG Q2 HRS NEEDED PRN 07/10 1944 AC (Dilaudid) Hydromorphone HCl 4 MG Q4 HRS NEEDED PRN 07/10 1944 AC (Dilaudid) Acute Coronary Syndrome Inclusion Criteria ACS Diagnosis No Inpatient Core Measures LDL Reminder: If No, please order W/I first 24hr of stay Congestive Heart Failure Inclusion Criteria CHF Diagnosis No Cerebrovascular accident Inclusion Criteria CVA/TIA Diagnosis No Inpatient Core Measures Bedside Swallow Eval Reminder: If BSE failed, place ST order Antithrombotic Reminder: Order Antithrombotic Medication by end of day 2 Antithrombotic Reminder: Document Reason Antithrombotic Not ordered by end of day 2 AFIB/Flutter Reminder: If Present, add to problem list AFIB/Flutter Reminder: Order Anticoag Medication for pts with AFIB/Flutter Atherosclerosis Reminder: If Present, add to problem list LDL Reminder: If No, please order W/I first 24hr of stay PT Order Reminder: If No, please order Venous thromboembolism Inpatient Core Measures VTE Risk Factors: Age > 40, [facility] prophylaxis d/t No contraindications No VTE Pharm Prophylaxis d/t VTE low risk Inclusion Criteria - Per Current guidelines, there needs to be overlap - treatment for the first 5 days of Warfarin therapy. - Parenteral Anticoagulation (IV or SC) needs to be - given along with Warfarin therapy. VTE Diagnosis No VTE Type NONE VTE Confirmed by (Test) NONE Problem List As ranked by this Provider includes Assessment & Plan 1. Fracture of femoral neck, right HOME MEDS Home Med List Amlodipine Besylate 10 MG TABLET 1 TAB PO DAILY HEART (Reported) Diltiazem HCl (Diltiazem 24HR ER) 120 MG CAP.ER.24H 1 CAP PO DAILY HEART ( Reported) Doxazosin Mesylate 2 MG TABLET 1 TAB PO DAILY HEART (Reported) Omeprazole 20 MG CAPSULE.DR 1 CAP PO DAILY GI (Reported) Oxycodone HCl 10 MG TABLET 1 TAB PO Q8H PRN PAIN (Reported) Zolpidem Tartrate 10 MG TABLET 1 TAB PO QPM SLEEP (Reported)
[2016-07-10 20:48] VITALS: BP 130/70
--- NOTE | 2016-07-10 20:50 | PN- Orthopedic ---
Subjective Subjective: Postop check: Patient with pain, controlled with IV pain medication, he is awake and alert, no other complaints Objective Vital Signs and I&Os Vital Signs Date Time Temp Pulse Resp B/P B/P Pulse O2 O2 Flow FiO2 Mean Ox Delivery Rate 07/10 1702 153/72 07/10 1538 97.2 65 20 159/82 97 Room Air 07/10 1157 99 Room Air 07/10 1134 97.9 96 20 137/84 98 Room Air Intake & Output 07/10 0807/10 0000 07/09 0000 Intake Total Output Total Balance Patient 153 lb Weight Weight Reported by Patient Measurement Method Physical Exam: Well-developed well-nourished no apparent distress. HEENT: Atraumatic, extraocular motion intact Neck: Supple, no lymphadenopathy Respiratory: No respiratory distress Extremities: No edema RIGHT lower extremity hip dressing in place, Dressing clean dry and intact Mild thigh edema No signs of infection. No shortening or rotation Hip range of motion is limited and without unexpected pain Neurovascularly intact distally Bilateral calves are supple, nontender. Neuro: Alert and oriented x3 Psych: Mood affect normal, normal memory normal judgment. Skin: Warm and dry, no rash on exposed skin Results Last 48 Hours of Labs: Laboratory Tests 07/10 1545 Chemistry Sodium (137 - 145 mmol/L) 139 Potassium (3.5 - 5.1 mmol/L) 4.5 Chloride (98 - 107 mmol/L) 103 Carbon Dioxide (22 - 30 mmol/L) 24 Anion Gap (5 - 16) 11 BUN (9 - 20 mg/dL) 18 Creatinine (0.7 - 1.2 mg/dL) 1.5 H Estimated GFR (>60 ml/min) 47 L BUN/Creatinine Ratio (7 - 25 %) 12.0 Glucose (65 - 99 mg/dL) 101 H Calcium (8.4 - 10.2 mg/dL) 9.4 Total Bilirubin (0.2 - 1.3 mg/dL) 0.7 AST (17 - 59 U/L) 22 ALT (21 - 72 U/L) 30 Alkaline Phosphatase (< 127 U/L) 159 H Total Protein (6.3 - 8.2 g/dL) 7.5 Albumin (3.5 - 5.0 g/dL) 4.3 Globulin (1.9 - 4.2 gm/dL) 3.2 Albumin/Globulin Ratio (1.1 - 2.2 %) 1.3 Coagulation PT (9.4 - 12.5 SEC) 14.2 H INR (0.90 - 1.17) 1.36 H APTT (25 - 37 SEC) 30 Hematology CBC w Diff NO MAN DIFF REQ WBC (4.8 - 10.8 /CUMM) 8.2 RBC (4.70 - 6.10 /CUMM) 4.05 L Hgb (14.0 - 18.0 G/DL) 12.3 L Hct (42 - 52 %) 36.3 L MCV (80.0 - 94.0 FL) 89.6 MCH (27.0 - 31.0 PG) 30.4 RDW (11.5 - 14.5 %) 13.2 Plt Count (130 - 400 /CUMM) 228 MPV (7.4 - 10.4 FL) 6.6 L Gran % (42.2 - 75.2 %) 80.9 H Lymphocytes % (20.5 - 51.1 %) 15.0 L Monocytes % (1.7 - 9.3 %) 3.7 Eosinophils % (0 - 5 %) 0.3 Basophils % (0.0 - 2.0 %) 0.1 Absolute Granulocytes (1.4 - 6.5 /CUMM) 6.6 H Absolute Lymphocytes (1.2 - 3.4 /CUMM) 1.2 Absolute Monocytes (0.10 - 0.60 /CUMM) 0.3 Absolute Eosinophils (0.0 - 0.7 /CUMM) 0 Absolute Basophils (0.0 - 0.2 /CUMM) 0 PUBS MCHC (33.0 - 37.0 G/DL) 33.9 Assessment/Plan Assessment/Plan Postoperative day 0 status post right hip femoral neck fracture percutaneous pinning Orthopedically stable Pain medication as needed, Dilaudid IV, switch to by mouth tomorrow Regular diet alps for DVT prophylaxis Out of bed with physical therapy touchdown weightbearing right lower extremity Discontinue IV fluids when tolerating adequate by mouth Perioperative antibiotics, Ancef 2 g every 8 hours Dressing change postop day 2 Core Measures/Miscellaneous Venous Thromboembolism VTE Risk Factors: Age > 40, Surgery VTE Contraindications: No Contraindications VTE Diagnosis: No VTE Type: NONE VTE Confirmed by (Test): NONE Beta Faisal Is Beta Faisal a Home Med? No Antibiotics Is Patient on Antibiotics? Yes If Yes: prophylaxis
[2016-07-10 23:00] VITALS: BP 138/74
[2016-07-11 01:06] VITALS: BP 122/72
[2016-07-11 02:59] VITALS: BP 124/64
[2016-07-11 06:00] VITALS: BP 132/70
--- NOTE | 2016-07-11 07:07 | PN- Medicine Consult ---
Assessment/Plan Assessment/Plan Assessment: Mr. Joesph meek a 66 yo man with PMHx. of Hypertension, pancreatitis, hepatitis C, history of arthritis, chronic pain syndrome, presented to emergency department with a chief complaint of worsening right hip pain, found to have right hip femoral neck fracture, admitted for ORIF of right hip. Today he is day 1 s/p right femoral neck ORIF with percutaneous pinning Assessment: #Rt. hip fracture 2/2 mechanical fall 1 month ago, day 1 s/p ORIF, percutaneous pinning #Hx. of HTN #CKD stage 3a #Hx. of Hepatitis C #Hx. of Pancreatitis Plan: -Pain management, suggest to adjust his pain medications to: Diluded 2mg IV Q2h and 0.6mg IV Q4h PRN . Aim is to decrease the frequency of his pain medications to better control pain. -Continue his home blood pressure medications (Amlodipine and Cardizem) -Continue his other home meds -Advanced diet as tolerated -Monitor bowel movement -Moniotr BP Problem List: 1. Status post open reduction with internal fixation of fracture Subjective Subjective: Patient seen and examined, he is in sever pain at the procedure site, 11/20, localized to the area, he denies any numbness. He dosen't have bowel movement yet, good UOP over night. Denies any chest pain, SOB, N/V. Review of Systems Constitutional: Reports: no symptoms. EENTM: Reports: no symptoms. Cardiovascular: Reports: no symptoms. Respiratory: Reports: no symptoms. Gastrointestinal: Reports: no symptoms. Genitourinary: Reports: no symptoms. Musculoskeletal: Reports: joint pain. Skin: Reports: no symptoms. Neurological/Psychological: Reports: no symptoms. Hematologic/Endocrine: Reports: no symptoms. Objective Last 24 Hrs of Vital Signs/I&O Vital Signs Date Time Temp Pulse Resp B/P B/P Pulse O2 O2 Flow FiO2 Mean Ox Delivery Rate 07/11 0600 99.1 70 16 132/70 95 Room Air 07/11 0259 98.9 78 16 124/64 95 Room Air 07/11 0106 98.9 72 16 122/72 94 Room Air 07/10 2300 98.5 64 16 138/74 95 Room Air 07/10 2048 98.0 89 20 130/70 95 Room Air 07/10 1702 153/72 07/10 1538 97.2 65 20 159/82 97 Room Air 07/10 1157 99 Room Air 07/10 1134 97.9 96 20 137/84 98 Room Air Intake & Output 07/11 0800 07/11 0000 07/10 1600 Intake Total 1000 1430 Output Total 500 700 Balance 500 730 Intake, IV 600 950 Intake, Oral 400 480 Output, Urine 500 700 Patient 153 lb 153 lb Weight Weight Reported by Patient Measurement Method Physical Exam General Appearance: alert, awake, severe distress Head: atraumatic, normal appearance Neck: normal inspection, supple, full range of motion Cardiovascular: regular rate/rhythm, normal peripheral pulses Respiratory: normal breath sounds, no respiratory distress Abdomen: soft, non-tender, distended, epigastric hernia Extremities: no edema Current Medications: Current Medications Sig/Esperanza Start time Last Medication Dose Route Stop Time Status Admin Amlodipine Besylate 10 MG DAILY 07/11 1000 AC PO Cefazolin Sodium 2 GM IQ8 07/11 0000 AC 07/10 N/A 1 UNIT IV 07/11 0829 2318 Cyclobenzaprine HCl 5 MG BID 07/10 1559 DC PO Dextrose/Sodium 1,000 ML Q13H 07/10 1945 DC 07/10 Chloride IV 2055 Diltiazem HCl 120 MG DAILY 07/11 1000 AC PO Doxazosin Mesylate 2 MG DAILY 07/11 1000 AC PO Heparin Sodium 0 .STK-MED ONE 07/10 1430 DC (Porcine) IV Hydromorphone HCl 2 MG Q4P PRN 07/11 0745 AC PO Hydromorphone HCl 1 MG Q2 HRS NEEDED PRN 07/10 1945 DC 07/10 IV 2318 Hydromorphone HCl 0.6 MG Q2 HRS NEEDED PRN 07/10 1945 AC IV Hydromorphone HCl 4 MG Q4 HRS NEEDED PRN 07/10 1945 AC 07/11 PO 0525 Hydromorphone HCl 2 MG ONCE ONE 07/10 1400 DC IM 07/10 1401 Hydromorphone HCl 0 .STK-MED ONE 07/10 1351 DC .ROUTE Hydromorphone HCl 1 MG ONCE ONE 07/10 1345 DC 07/10 IM 07/10 1346 1404 Lidocaine 1 PAT DAILY 07/10 1559 DC EXT Lidocaine 0 .STK-MED ONE 07/10 1430 DC .ROUTE Omeprazole 20 MG DAILY 07/11 1000 AC PO Zolpidem Tartrate 10 MG QPM 07/11 2200 AC PO Results Last 24 Hrs Lab/Matty Results: Laboratory Tests 07/11/16 0530: Sodium Pending, Potassium Pending, Chloride Pending, Carbon Dioxide Pending, Anion Gap Pending, BUN Pending, Creatinine Pending, BUN/Creatinine Ratio Pending , CBC w Diff Pending, WBC Pending, RBC Pending, Hgb Pending, Hct Pending, MCV Pending, MCH Pending, RDW Pending, Plt Count Pending, MPV Pending, PUBS MCHC Pending 07/10/16 1545: Anion Gap 11, Estimated GFR 47 L, BUN/Creatinine Ratio 12.0, Glucose 101 H, Calcium 9.4, Total Bilirubin 0.7, AST 22, ALT 30, Alkaline Phosphatase 159 H, Total Protein 7.5, Albumin 4.3, Globulin 3.2, Albumin/Globulin Ratio 1.3, PT 14.2 H, INR 1.36 H, APTT 30, CBC w Diff NO MAN DIFF REQ, RBC 4.05 L, MCV 89.6 , MCH 30.4, RDW 13.2, MPV 6.6 L, Gran % 80.9 H, Lymphocytes % 15.0 L, Monocytes % 3.7, Eosinophils % 0.3, Basophils % 0.1, Absolute Granulocytes 6.6 H, Absolute Lymphocytes 1.2, Absolute Monocytes 0.3, Absolute Eosinophils 0, Absolute Basophils 0, PUBS MCHC 33.9
--- NOTE | 2016-07-11 07:43 | PN- Orthopedic ---
Subjective Subjective: No acute overnight events reported, patient states that he has discomfort because when supine he is "laying on incision" but has gotten relief with dilaudid. Denies chest pain, shortness of breath and difficulty breathing. Denies nausea and vomitting. Has been tolerating po. Has been voiding without difficulty. Objective Vital Signs and I&Os Vital Signs Date Time Temp Pulse Resp B/P B/P Pulse O2 O2 Flow FiO2 Mean Ox Delivery Rate 07/11 0600 99.1 70 16 132/70 95 Room Air 07/11 0259 98.9 78 16 124/64 95 Room Air 07/11 0106 98.9 72 16 122/72 94 Room Air 07/10 2300 98.5 64 16 138/74 95 Room Air 07/10 2048 98.0 89 20 130/70 95 Room Air 07/10 1702 153/72 07/10 1538 97.2 65 20 159/82 97 Room Air 07/10 1157 99 Room Air 07/10 1134 97.9 96 20 137/84 98 Room Air Intake & Output 07/11 0800 07/11 0000 07/10 1600 07/10 0800 07/10 0000 07/09 1600 Intake Total 1000 1430 Output Total 500 700 Balance 500 730 Intake, IV 600 950 Intake, Oral 400 480 Output, Urine 500 700 Patient 153 lb 153 lb Weight Weight Reported by Patient Measurement Method Physical Exam: General: Alert and oriented x3, no acute distress Cardiac: RRR, s1s2 Pulmonary: CTA bilaterally Abdomen: Non-tender, non-distended Extremties: Moves all extremities, distal sensation intact. Skin warm and well perfused. No resting internal or external rotation of right leg, no obvious leg length discrepancy. Thigh compartment soft on right side, dressing dry and intact. DP pulse palpable bilaterally, bilateral calves soft. Assessment/Plan Assessment/Plan This is a 66 year old male, POD 1, s/p ORIF right femoral neck fracture with cannulated screw placement. -D/C 1 mg IV dilaudid, leave 0.6 mg IV for breakthrough, add 2 mg for pain 1-6, change 4 mg to pain 7-10. Will attempt to wean off of IV dilaudid completely today. -Ice to surgical site today -D/C IV fluids, tolerating po -OOB with pt, ttwb -Diet as tolerated -Mechanical dvt ppx -ALPS; if remains immobile, will add sq heparin, but none needed for now per Dr. Villafana -Restart home meds for htn and GERD -Will d/w Dr. Villafana Core Measures/Miscellaneous Venous Thromboembolism VTE Risk Factors: Age > 40, Surgery VTE Contraindications: No Contraindications VTE Diagnosis: No VTE Type: NONE VTE Confirmed by (Test): NONE Beta Faisal Is Beta Faisal a Home Med? No Antibiotics Is Patient on Antibiotics? Yes If Yes: prophylaxis
[2016-07-11 08:04] LABS: ABSOLUTE BASOPHIL COUNT 0 /CUMM (0.0-0.2); ABSOLUTE EOSINOPHIL COUNT 0.1 /CUMM (0.0-0.7); ABSOLUTE GRANULOCYTE CT 5.8 /CUMM (1.4-6.5); ABSOLUTE LYMPH COUNT 1.6 /CUMM (1.2-3.4); ABSOLUTE MONOCYTE COUNT 0.4 /CUMM (0.10-0.60); BASOPHIL % 0.4 % (0.0-2.0); EOSINOPHIL % 1.3 % (0-5); HEMATOCRIT 33.2 % (42-52); MEAN CORPUSCULAR HGB 31.2 PG (27.0-31.0); MEAN CORPUSCULAR HGB CONC 34.3 G/DL (33.0-37.0); MEAN PLATELET VOLUME 7.4 FL (7.4-10.4); PLATELET COUNT 193 /CUMM (130-400); RBC DISTRIBUTION WIDTH 13.4 % (11.5-14.5); RED BLOOD CELL CT 3.65 /CUMM (4.70-6.10); WHITE BLOOD CELL COUNT 7.9 /CUMM (4.8-10.8)
[2016-07-11 12:45] VITALS: BP 130/60
[2016-07-11 14:37] VITALS: BP 128/76
[2016-07-11 22:52] VITALS: BP 122/54
[2016-07-12 06:14] VITALS: BP 130/68
--- NOTE | 2016-07-12 07:57 | PN- Orthopedic ---
Assessment/Plan Assessment/Plan Core Measures/Miscellaneous Venous Thromboembolism VTE Risk Factors: Age > 40, Surgery VTE Contraindications: No Contraindications VTE Diagnosis: No VTE Type: NONE VTE Confirmed by (Test): NONE Beta Faisal Is Beta Faisal a Home Med? No Antibiotics Is Patient on Antibiotics? Yes If Yes: prophylaxis
--- NOTE | 2016-07-12 08:18 | PN- Orthopedic ---
Subjective Subjective: PT. HAS MULTIPLE COMPLAINTS. HIS MAJOR COMPLAINT IS POOR PAIN CONTROL. HE STATES HE IS HAVING LOTS OF PAIN AND THAT HE HAS BEEN ASKING ALL NIGHT FOR PAIN MED BUT WAS NOT GIVEN ANY. COMPLAINS THAT HE WANTS TO USE CRUTHCES INSTEAD OF WALKER. Objective Vital Signs and I&Os Vital Signs Date Time Temp Pulse Resp B/P B/P Pulse O2 O2 Flow FiO2 Mean Ox Delivery Rate 07/12 0514 97.5 83 20 130/68 95 Room Air 07/11 2252 99.0 79 20 122/54 94 Room Air 07/11 1437 98.6 76 20 128/76 95 07/11 1245 100.0 80 18 130/60 97 Room Air 07/11 1115 74 142/70 Intake & Output 07/12 1600 07/12 0800 07/12 0000 07/11 1600 07/11 0800 07/11 0000 Intake Total 480 157 489 3736 1430 Output Total 275 550 750 700 Balance 205 500 275 250 730 Intake, IV 225 600 950 Intake, Oral 480 500 600 400 480 Output, Urine 275 550 750 700 Patient 153 lb Weight ALERT, ORIENTED, TEARFULL, UPSET REG. NOT GETTING PAIN MEDS. HERAT REGULAR LUNGS CLEAR BILAT. ABDOMEN BENIGN R HIP DRESSING IS C/D/I, NORMAL SENSATION OVER ENTIRE LEG,GOOD DISTAL PERFUSION AND MOTOR FUNCTION Assessment/Plan Assessment/Plan S/P R FEM NECK PINNING POD #2 STABLE HEMODYNAMICS PAIN ISSUE. I REVIEWED HIS MEDS; HE WAS NOT MEDICATED BETWEEN 12 MN AND 6 AM THIS MORNING WHICH LIKELY CONTRIBUTED TO HIS SEVERE PAIN THIS MORNING.I REVIEWED MEDS WITH NURSE AND PT. WILL CONTINUE 2 MG OF PO DILAUDID EVERY 4 HRS WITH IV 0.6 MG DILAUDID FOR BREAKTHROUGH PAIN.WILL CONSIDRE ADJUSTING FREQUENCY OF PO DILAUDID IF REQUIRES SIGNIFICANT AMOUNTS OF ADDITIONAL IV DILUADID. WILL ADD BOWEL REGIMEN PT TO WORK TODAY FOR AMBULATION /TDWB WOUND WITHOUT INFECTION MAY NEED REHAB AT DISCHARGE Core Measures/Miscellaneous Venous Thromboembolism VTE Risk Factors: Age > 40, Surgery VTE Contraindications: No Contraindications VTE Diagnosis: No VTE Type: NONE VTE Confirmed by (Test): NONE Beta Faisal Is Beta Faisal a Home Med? No Antibiotics Is Patient on Antibiotics? Yes If Yes: prophylaxis
--- NOTE | 2016-07-12 08:46 | PN- Medicine Consult ---
YVETTE,[facility] 07/12/16 0845: Assessment/Plan Assessment/Plan Assessment: Mr. Joesph meek a 66 yo man with PMHx. of Hypertension, pancreatitis, hepatitis C, history of arthritis, chronic pain syndrome, presented to emergency department with a chief complaint of worsening right hip pain, found to have right hip femoral neck fracture, admitted for ORIF of right hip. Today he is day 1 s/p right femoral neck ORIF with percutaneous pinning Assessment: #Rt. hip fracture 2/2 mechanical fall 1 month ago, day 1 s/p ORIF, percutaneous pinning #Hx. of HTN #CKD stage 3a #Hx. of Hepatitis C #Hx. of Pancreatitis Plan: -Patient is still in pain: suggest to change PO Diluded either 4mg or 2mg from PRN to schedualed and taper as tolerated, keep 0.6 iv diluded Q2h for breakthrough pain. -Continue his home blood pressure medications (Amlodipine and Cardizem) -Continue his other home meds -Advanced diet as tolerated -Monitor bowel movement -Moniotr BP Problem List: 1. Status post open reduction with internal fixation of fracture 2. Hepatitis C 3. Pain Subjective Subjective: Patient seen and examinaed, he complained of sever pain, 10/10 overnight, he has been asking for pain medication, didn't received any. He also complained of right foot pain. He is able to pass gas, but no bowel movement yest, good urine output. Patient denies any other complaint. Review of Systems Constitutional: Reports: no symptoms. EENTM: Reports: no symptoms. Cardiovascular: Reports: no symptoms. Respiratory: Reports: no symptoms. Gastrointestinal: Reports: no symptoms. Genitourinary: Reports: no symptoms. Musculoskeletal: Reports: joint pain. Skin: Reports: no symptoms. Neurological/Psychological: Reports: no symptoms. Comments: Patient has right foot pain at the lateral aspect of the dorsal metatarsal area. Objective Last 24 Hrs of Vital Signs/I&O Vital Signs Date Time Temp Pulse Resp B/P B/P Pulse O2 O2 Flow FiO2 Mean Ox Delivery Rate 07/12 0614 97.5 83 20 130/68 95 Room Air 07/11 2252 99.0 79 20 122/54 94 Room Air 07/11 1437 98.6 76 20 128/76 95 07/11 1245 100.0 80 18 130/60 97 Room Air 07/11 1115 74 142/70 Intake & Output 07/12 1600 07/12 0800 07/12 0000 Intake Total 480 500 Output Total 275 Balance 205 500 Intake, Oral 480 500 Output, Urine 275 Physical Exam General Appearance: alert, awake, severe distress Head: atraumatic, normal appearance Cardiovascular: regular rate/rhythm, normal peripheral pulses Respiratory: normal breath sounds, no respiratory distress Peripheral Pulses: 3+ dorsalis pedis (R), 3+ dorsalis pedis (L) Abdomen: normal bowel sounds, soft, non-tender Extremities: no edema Neurologic/Psychiatric: awake, alert, oriented x 3 Current Medications: Current Medications Sig/Esperanza Start time Last Medication Dose Route Stop Time Status Admin Amlodipine Besylate 10 MG DAILY 07/11 1000 AC 07/12 PO 0815 Carisoprodol 350 MG 4 TIMES/DAY PRN 07/11 1830 CAN PO Carisoprodol 350 MG TID PRN 07/11 1830 AC 07/12 PO 0815 Diltiazem HCl 120 MG DAILY 07/11 1000 AC 07/12 PO 0815 Docusate Sodium 100 MG BID 07/12 1000 AC 07/12 PO 0815 Doxazosin Mesylate 2 MG DAILY 07/11 1000 AC 07/12 PO 0815 Hydromorphone HCl 2 MG Q4P PRN 07/11 0745 AC PO Hydromorphone HCl 0.6 MG Q2 HRS NEEDED PRN 07/10 1945 AC 07/12 IV 0831 Hydromorphone HCl 4 MG Q4 HRS NEEDED PRN 07/10 1945 AC 07/12 PO 0748 Omeprazole 20 MG DAILY 07/11 1000 AC 07/12 PO 0815 Polyethylene Glycol 17 GM DAILY 07/12 1000 AC PO Senna 187 MG AT BEDTIME 07/12 2200 AC PO Zolpidem Tartrate 10 MG QPM 07/11 2200 AC 07/11 PO 2143 Results Last 24 Hrs Lab/Matty Results: NO lab for today KATHRYN DONALD MD 07/12/16 1356: Attending MD Review Statement Attending Sign Off Attending Cosign Statement: I have: examined this patient, reviewed [facility] EMR data, discussd w/resident/PA/ LUNCHROOM ATTENDANT, agreed w/resident/PA/LUNCHROOM ATTENDANT.
[2016-07-12 14:15] VITALS: BP 118/65
--- NOTE | 2016-07-12 16:01 | Operative Report ---
Operative/Inv Procedure Report Surgery Date: 07/10/16
[2016-07-12 21:53] VITALS: BP 120/66
[2016-07-13 07:20] VITALS: BP 118/64
--- NOTE | 2016-07-13 07:52 | PN- Orthopedic ---
See Addendum Subjective Subjective: Patient's pain is better controlled. [facility] No acute events overnight. Objective Vital Signs and I&Os Vital Signs Date Time Temp Pulse Resp B/P B/P Pulse O2 O2 Flow FiO2 Mean Ox Delivery Rate 07/13 0720 99.0 76 22 118/64 95 / 2153 98.8 85 22 120/66 95 07/12 1415 98.4 81 20 118/65 95 Room Air 07/12 1149 Room Air Intake & Output 07/13 0800 07/13 0000 07/12 1600 07/12 0800 07/12 0000 07/11 1600 Intake Total 1000 480 500 825 Output Total 350 650 275 550 Balance -350 350 205 500 275 Intake, IV 100 225 Intake, Oral 900 480 500 600 Number 0 Bowel Movements Output, Urine 350 650 275 550 Physical Exam: Well-developed well-nourished no apparent distress. HEENT: Atraumatic, extraocular motion intact Neck: Supple, no lymphadenopathy Respiratory: No respiratory distress Extremities: No edema RIGHT lower extremity hip dressing in place, Dressing clean dry and intact, dressing changed Incision without erythema Mild thigh edema No signs of infection. No shortening or rotation Hip range of motion is limited and without unexpected pain Neurovascularly intact distally Bilateral calves are supple, nontender. Neuro: Alert and oriented x3 Psych: Mood affect normal, normal memory normal judgment. Skin: Warm and dry, no rash on exposed skin Assessment/Plan Assessment/Plan Postop day #3 status post right hip percutaneous pinning Continue current pain regiment alps for DVT prophylaxis Continue touchdown weightbearing with physical therapy, OOB Disposition to short-term rehabilitation silly today if bed available Follow-up in 10 days as outpatient with orthopedist Core Measures/Miscellaneous Venous Thromboembolism VTE Risk Factors: Age > 40, Surgery VTE Contraindications: No Contraindications VTE Diagnosis: No VTE Type: NONE VTE Confirmed by (Test): NONE Beta Faisal Is Beta Faisal a Home Med? No Antibiotics Is Patient on Antibiotics? Yes If Yes: prophylaxis
--- NOTE | 2016-07-13 07:58 | Patient Discharge Instructions ---
Discharge Instructions General Discharge Information You were seen/treated for: Right hip fracture You had these procedures: Right hip percutaneous pinning Watch for these problems: Redness, swelling, fever, severe pain or deformity of the hip or like Call Surgeon to remove: [place] (10 days) Do not soak the wound: Yes No bath, but you may shower: Yes Special Instructions: Dry sterile dressing right hip Diet Continue normal diet: Yes Activity Full Activity/No Limits: No Activity Self Limited: Yes Activity Limited to: Walking with Assistance Additional ACTIVITY Info: Touchdown weightbearing right lower extremity only Acute Coronary Syndrome Inclusion Criteria At DC or during hospital stay patient has or had the following: ACS DIAGNOSIS No Discharge Core Measures Meds if any: Prescribed or Continued at Discharge Meds if any: NOT Prescribed or Continued at Discharge Congestive Heart Failure Inclusion Criteria At DC or during hospital stay patient has or had the following: CHF DIAGNOSIS No Discharge Core Measures Meds if any: Prescribed or Continued at Discharge Meds if any: NOT Prescribed or Continued at Discharge Cerebrovascular accident Inclusion Criteria At DC or during hospital stay patient has or had the following: CVA/TIA Diagnosis No Discharge Core Measures Meds if any: Prescribed or Continued at Discharge Meds if any: NOT Prescribed or Continued at Discharge Venous thromboembolism Inclusion Criteria VTE Diagnosis No VTE Type NONE VTE Confirmed by (Test) NONE Discharge Core Measures - Per Current guidelines, there needs to be overlap - treatment for the first 5 days of Warfarin therapy. - If discharged on Warfarin prior to 5 days of - overlap therapy, the patient will need to be - assessed for post discharge needs including - *Post discharge parental anticoagulation - *Warfarin and/or parental anticoagulation education - *Follow up date to check INR post discharge At least 5 days overlap therapy as Inpatient No Meds if any: Prescribed or Continued at Discharge Note: Overlap Therapy is Warfarin and Anticoagulant Meds if any: NOT Prescribed or Continued at Discharge
--- NOTE | 2016-07-13 08:03 | Surgical Discharge Summary ---
Visit Information Visit Dates Admission Date: 07/10/16 Discharge Date: 07/14/16 History of Present Illness Chief Complaint: Right hip pain Medical History Blood Transfusion Hx: Yes Neurological: NONE EENT: NONE Cardiovascular: hypertension Respiratory: NONE Gastrointestinal: GERD Hepatic: PANCREATITIS HEP C FROM BLOOD TRANSFUSION Renal: NONE Musculoskeletal: CHRONIC HIP PAIN Psychiatric: NONE Endocrine: NONE Blood Disorders: NONE Cancer(s): NONE CT SCAN SPECIAL PROCEDURES TECHNOLOGIST/Reproductive: NONE Other Medical Hx: History of Hepatitis C History of MRSA: No History of VRE: Yes History of CDIFF: No Isolation History: Contact Surgical History Pertinent Surgical History: knee replacement Family History Relations & Conditions If Any: FATHER MOTHER Relation not specified for: CHF (congestive heart failure) FHx: stroke Psychosocial History Who Do You Live With? Son Services at Home: None What is Your Primary Language? Hungarian ETOH Use: denies use Review of Systems: See HPI Hospital Course Course Attending Physician: NATALYA DUVALL,KAELA Davis Primary Care Physician: TRACI DUVALL,[place] Hospital Course: Patient was admitted on 07/10/2016 for right hip pain after a fall that occurred approximately a month ago he has had increasing pain ever since, worse over the last few days prior to admission. CT scan shows a nondisplaced femoral neck fracture, patient was admitted that day and went for a percutaneous pinning of the right hip femoral neck fracture by Kaela Villafana MD. Surgery went without complications and patient was transferred to the floor, his postoperative course was uncomplicated although patient has a history of chronic pain and pain management with him immediately postoperatively was challenging. He is now comfortable on the pain management regiment, performing fair with physical therapy, touchdown weightbearing right lower extremity however he needs continued physical therapy rehabilitation as he is unsteady on his feet and not safe to be discharged home. Mr Pink was unable to be accepted to [facility] on 07/13 because he had not had a BM for 4 days. It was felt he had a narcotic induced ileus. His narcotics were decreased and he was on a bowel regimen. On 07/14 he had a BM and was able to be discharged to rehab. Complications: None Allergies: Coded Allergies: Penicillins (HIVES 06/16/16) acetaminophen (PER PT CANT TAKE - PANCREATITIS 06/16/16) ibuprofen (CANT TAKE PER PT - PANCREATITIS 06/16/16) Significant Procedures: See above Disposition Summary Disposition Principal Diagnosis: Right hip femoral neck fracture, nondisplaced Additional Diagnosis: Status post right hip pertaining is pending Discharge Disposition: SNF Discharge Instructions General Discharge Information Code Status: Full Code Patient's Diet: Regular Patient's Activity: Touchdown weightbearing right lower extremity, out of bed physical therapy, with a walker needed Follow-Up Instructions/Appts: Follow-up with Kaela Villafana MD in 10 days' time, continue touchdown weightbearing, daily dressing changes with Band-Aids to the right hip Medications at Discharge Discharge Medications: Stop taking the following medications: Oxycodone HCl (Oxycodone HCl) 10 MG TABLET ORAL Q8H as needed for PAIN Qty = 90 Continue taking these medications: Doxazosin Mesylate (Doxazosin Mesylate) 2 MG TABLET 1 Tablet ORAL DAILY Qty = 90 Comments: Last Taken: 07/13/16 Time: 0900am Diltiazem HCl (Diltiazem 24HR ER) 120 MG CAP.ER.24H 1 Capsule ORAL DAILY Qty = 90 Comments: Last Taken: 07/13/16 Time: 0900am Omeprazole (Omeprazole) 20 MG CAPSULE.DR 1 Capsule ORAL DAILY Qty = 90 Comments: Last Taken: 07/13/16 Time: 0900am Zolpidem Tartrate (Zolpidem Tartrate) 10 MG TABLET 1 Tablet ORAL Every night Qty = 30 Comments: Last Taken: 07/12/16 Time: 2200pm Amlodipine Besylate (Amlodipine Besylate) 10 MG TABLET 1 Tablet ORAL DAILY Qty = 90 Comments: Last Taken: 07/13/16 Time: 0900am Start taking the following new medications: Hydromorphone HCl (Hydromorphone HCl) 2 MG TABLET 4-6 Milligram ORAL EVERY 4 HOURS NEEDED as needed for pain Qty = 30 No Refills Comments: Last Taken:07/13/16 Time: 1315pm Docusate Sodium (Colace) 100 MG CAPSULE 1 Capsule ORAL TWICE DAILY Qty = 60 No Refills Polyethylene Glycol 3350 (Miralax) 17 GRAM POWD.PACK 1 Packet ORAL DAILY Qty = 10 No Refills Instructions: dissolve in water
[2016-07-13 08:09] LABS: ABSOLUTE BASOPHIL COUNT 0 /CUMM (0.0-0.2); ABSOLUTE EOSINOPHIL COUNT 0.2 /CUMM (0.0-0.7); ABSOLUTE GRANULOCYTE CT 4.7 /CUMM (1.4-6.5); ABSOLUTE MONOCYTE COUNT 0.5 /CUMM (0.10-0.60); BASOPHIL % 0.5 % (0.0-2.0); EOSINOPHIL % 2.3 % (0-5); GRANULOCYTE % 63.8 % (42.2-75.2); HEMATOCRIT 31.4 % (42-52); MEAN CORPUSCULAR HGB 31.2 PG (27.0-31.0); MEAN CORPUSCULAR VOLUME 91.6 FL (80.0-94.0); MEAN PLATELET VOLUME 7.7 FL (7.4-10.4); PLATELET COUNT 155 /CUMM (130-400); RBC DISTRIBUTION WIDTH 13.5 % (11.5-14.5); RED BLOOD CELL CT 3.43 /CUMM (4.70-6.10); WHITE BLOOD CELL COUNT 7.3 /CUMM (4.8-10.8)
[2016-07-13 15:17] VITALS: BP 130/80
[2016-07-13 23:51] VITALS: BP 93/78
[2016-07-14 01:56] VITALS: BP 128/76
[2016-07-14 06:48] VITALS: BP 133/81
[2016-07-14] MEDS ORDERED: MIRALAX17 G1 PO (09:04)
[2016-07-14] MEDS ORDERED: COLACE100 M1 PO (09:04)
--- NOTE | 2016-07-14 09:04 | PN- Orthopedic ---
See Addendum Subjective Subjective: Pt seen by Dr Woods this morning Awake, alert Angry that his pain meds have been cut down Has not had a BM in over 4 days Ambulating with walker Objective Vital Signs and I&Os Vital Signs Date Time Temp Pulse Resp B/P B/P Pulse O2 O2 Flow FiO2 Mean Ox Delivery Rate 07/14 0648 99.3 86 20 133/81 95 Room Air 07/14 0156 128/76 07/13 2351 98.9 89 20 93/78 97 Room Air 07/13 1517 98.6 102 20 130/80 97 Room Air 07/13 0909 98.7 78 120/70 Intake & Output 07/14 1600 07/14 0800 07/14 0000 07/13 1600 07/13 0800 07/13 0000 Intake Total 423 615 5023 300 Output Total 300 375 950 300 350 Balance -300 240 105 620 0 -350 Intake, IV 50 60 Intake, Oral 433 663 7307 240 Number 0 0 Bowel Movements Output, Urine 300 375 950 300 350 Physical Exam: General: alert and oriented times three Chest: clear anteriorly Ext: warm, no edema, positive sensate, no calf tenderness Wound: dressing dry Assessment/Plan Assessment/Plan 66yo male s/p R fem neck pinning pod 4 Pt has been discharged to [facility] but needs to have a BM prior to being accepted Has been refusing all bowel regimen meds Has chronic as well as acute pain issues, taking dilaudid 6mg po every 4 hours Cut dilaudid to 2mg po q4h until BM due to narcotic induced ileus encouraged pt to take bowel regimen - colace/miralax/dulcolax He agrees to take something this morning Plan to dc to str after BM Continue PT Core Measures/Miscellaneous Venous Thromboembolism VTE Risk Factors: Age > 40, Surgery VTE Contraindications: No Contraindications VTE Diagnosis: No VTE Type: NONE VTE Confirmed by (Test): NONE Beta Faisal Is Beta Faisal a Home Med? No Antibiotics Is Patient on Antibiotics? Yes If Yes: prophylaxis
[2016-07-14] MEDS ORDERED: HYDROMORPHONE HC2 M1 PO (10:49)
[2016-07-14 11:57] VITALS: BP 152/82
== END 2016-07-14 12:40 | DRG 482 ==
LOC: DELPENDDIS → ERH 11:14 → ER-OR 11:32 → ERH 11:32 → PACUH 19:22 → 2NA 19:22 → ENRESERV 19:53 → 2NA 20:18 → 2NB 07-11 17:33 → ENPENDDIS 07-13 08:47 → 2NB 07-14 12:40
PROVIDERS: Nurse Practitioner; Physician Assistant Medical; Physician Assistant Surgical; ADMIT Orthopaedic Surgery Orthopaedic Surgery of the Spine
PROC: 0QS804Z Reposition Right Femoral Shaft with Internal Fixation Device, Open Approach (ICD-10-PCS; principal; 2016-07-10)
PROC: B518ZZA Fluoroscopy of Superior Vena Cava, Guidance (ICD-10-PCS; 2016-07-10)
PROC: 02HV33Z Insertion of Infusion Device into Superior Vena Cava, Percutaneous Approach (ICD-10-PCS; 2016-07-10)
DX: S72.91XA Unspecified fracture of right femur, initial encounter for closed fracture (principal); N18.3 Chronic kidney disease, stage 3 (moderate); I12.9 Hypertensive chronic kidney disease with stage 1 through stage 4 chronic kidney disease, or unspecified chronic kidney disease; W18.30XA Fall on same level, unspecified, initial encounter; F17.210 Nicotine dependence, cigarettes, uncomplicated; K21.9 Gastro-esophageal reflux disease without esophagitis; Z86.19 Personal history of other infectious and parasitic diseases
CPT/HCPCS: 2NASP; 73502-RT; 77002; 82436; 93005; 93010; 96372; 97110-GO; 97116-GO; 97161-GP; 97530-GO; C1751; C1769; J0690; J1170; J1642; J2175; J2250; J2405; J7042

== ENCOUNTER → 2017-10-22 | Day surgery (SDC) | payer OTHER, MEDICARE ==
[~2017-10-22] VITALS: Ht 165.1 cm; Wt 74.8 kg
[~2017-10-22] MED LIST changes: +CARISOPRODOL350 M1 PO; +COLACE100 M1 PO; +HYDROMORPHONE HC2 M1 PO; +LIDOCAINE35.44 GM TOP; +MIRALAX17 G1 PO; +OXYCODONE HCL10 M2 PO; +VITAMIN D250000 UNIT PO; +XARELTO15 M1 PO
--- NOTE | 2017-10-22 15:53 | Operative Report ---
Operative/Inv Procedure Report Surgery Date: 10/22/17 Name of Procedure: Robotic laparoscopic mesh 10 x 15 cm repair of ventral incisional hernia, reducible Pre-Operative Diagnosis: Ventral incisional hernia Post-Operative Diagnosis: Same Estimated Blood Loss: scant Surgeon/Barkeep: Osito DUVALL,Suhail CASTANEDA Anesthesia: general endotracheal tube Operative/Procedure Note Note: Patient was positioned supine on the table. After successful induction of general anesthesia the abdomen was clipped prepped and draped in usual sterile fashion. The abdominal skin is marked to guide where the mesh will lay, centered under the defect, and where the 3 8 mm robotic trochars will be positioned. After injection of local anesthetic at a spot in the mid to lateral left subcostal area, a horizontal 1 cm incision was made with a 15 blade. Using the plastic pointed-tipped translucent 8 mm with a metal robotic trocar and the camera inserted, the abdominal wall was traversed through this incision, watching on the screen, as the trocar passes through the layers, alternating colors, yellow fat white fascia red muscle, until the tip just seems to harvey the inner thin peritoneal layer. At that point, I stop pushing and check if it's open by turning on the gas. If the belly insufflates then you know you can advance that large trocar into an empty space more directly without injuring the viscera. The gas was turned on to 15 mm. Next the 2 remaining 8 mm robotic trochars are placed, one subxiphoid to the left, and one left lateral lower in the anterior axillary line The robot then is brought to the patient attached docked and targeted. Then the adhesions were taken down sharply mostly with scissors some blunt and rarely cautery he had diastases but the main defect was periumbilical centered just to the left of midline and it was adherent but not obstructed small intestine which was gently released and taken out of the sac. This defect was then closed transversely with 2 running continuous 0 V lock, absorbable, one at each end and meeting in the middle. We then chose Parietex coated mesh, 10 x 15 oriented vertically centered it over the defect however favoring the epigastrium to cover the diastases, and then it was sewn in place with 4 separate continuous runs of 2-0 V lock suture. Next we checked for hemostasis and then undocked letting the gas escape pulling out the instruments and the trochars these 3 incisions were small but where we could see fascia it was closed with 2-0 Vicryl suture, then closed the skin with subcuticular 4-0 Monocryl, and then Mastisol, Steri-Strips and Band-Aids. Overall estimated blood loss was minimal, lap and sponge counts were correct, wound expectancy was clean , IV fluids crystalloid, complications none, patient tolerated the procedure well, did not significantly youssef during extubation and was returned to the recovery room in satisfactory condition.
== END ==
LOC: STS 01:49
DX: K43.2 Incisional hernia without obstruction or gangrene (principal); B18.2 Chronic viral hepatitis C; I10 Essential (primary) hypertension; K21.9 Gastro-esophageal reflux disease without esophagitis; F17.200 Nicotine dependence, unspecified, uncomplicated
CPT/HCPCS: C1781; J0131; J2250; J3490